=== PATIENT | male | born 1955 | race African-American/Black ===

== ENCOUNTER → 2017-11-22 | Outpatient (CLI) | payer OTHER ==
[~2017-11-22] MED LIST: PHENYTOIN 50 MG PO
--- NOTE | 2017-11-22 16:09 | Diagnostic Imaging Report ---
PROCEDURE:C-SPINE COMPLETE COMPARISON:None. INDICATIONS:SHARP RIGHT SIDE PAIN FINDINGS: 5 views of the cervical spine (AP, lateral, bilateral obliques, and odontoid view). The lateral view is visualized from the skull base to the top of C7. The vertebral bodies are well-aligned. There are no fractures, lytic or blastic lesions. There is mild multilevel disc space narrowing and anterior osteophyte formation. There is moderate to severe narrowing of the C1-C2 interval, likely degenerative. Bilateral neural foraminal narrowing at C3-C4. Probable right-sided neural foraminal narrowing at C4-C5. The pre-vertebral soft tissues are normal. CONCLUSION: Multilevel degenerative changes of the cervical spine as above. Dictated by: Clifford Mills M.D. on 11/22/2017 at 16:18 Electronically approved by: Clifford Mills M.D. on 11/22/2017 at 16:18
--- NOTE | 2017-11-22 16:17 | Diagnostic Imaging Report ---
PROCEDURE:X-RAY RIGHT ELBOW, COMPLETE COMPARISON:None. INDICATIONS:SHARP RADIATING PAIN FROM NECK TO HAND FINDINGS: 3 views of the right elbow (AP, lateral, and oblique) There are no fractures, dislocations, lytic or blastic lesions. There is a small triceps tendon enthesophyte. The bones are well-mineralized. The soft-tissues are unremarkable. CONCLUSION: No acute abnormality of the right elbow. Dictated by: Clifford Mills M.D. on 11/22/2017 at 16:26 Electronically approved by: Clifford Mills M.D. on 11/22/2017 at 16:26
--- NOTE | 2017-11-22 16:36 | Diagnostic Imaging Report ---
PROCEDURE:HAND RIGHT 3 VIEWS AP \T\ LAT COMPARISON:None. INDICATIONS:SHARP RIGHT SIDE NECK AND HAND PAIN FINDINGS: 3 views of the right hand (AP, lateral, and oblique) There are no fractures, dislocations, lytic or blastic lesions. Mild degenerative changes at the basilar joint of the thumb and at the DIP joints. The bones are well-mineralized. The soft-tissues are unremarkable. IMPRESSION: No acute radiographic abnormality of the right hand. Dictated by: Clifford Mills M.D. on 11/22/2017 at 16:46 Electronically approved by: Clifford Mills M.D. on 11/22/2017 at 16:46
--- NOTE | 2017-11-22 16:39 | Diagnostic Imaging Report ---
PROCEDURE:X-RAY RIGHT SHOULDER, COMPLETE COMPARISON:None. INDICATIONS:SHARP RADIATING PAIN FROM NECK TO HAND FINDINGS: 2 views of the right shoulder (AP internal and external rotation). Internal and external rotation are adequate. There are no fractures or dislocation. Well-corticated ossified bodies in the glenohumeral joint. Degenerative changes of the acromioclavicular joint. CONCLUSION: 1. No fracture or dislocation. 2. Well-corticated ossicles in the glenohumeral joint may represent loose bodies or calcific tendinopathy in the subcutaneous tendon. Dictated by: Clifford Mills M.D. on 11/22/2017 at 16:48 Electronically approved by: Clifford Mills M.D. on 11/22/2017 at 16:49
== END ==
LOC: RAD 14:50
DX: M54.2 Cervicalgia (principal); R20.2 Paresthesia of skin; M25.511 Pain in right shoulder; M25.521 Pain in right elbow; M79.641 Pain in right hand
CPT/HCPCS: 72050

== ENCOUNTER → 2019-04-27 | Outpatient (CLI) | payer OTHER ==
--- NOTE | 2019-04-27 16:11 | Diagnostic Imaging Report ---
EXAMINATION: CHEST 2 VIEWS INDICATION: Palpable chest lesion. COMPARISON: None FINDINGS: TUBES and LINES: None. LUNGS: The lung volumes are normal. No focal consolidation or pulmonary edema. 5 mm calcified granuloma in the right upper lung zone. PLEURA: No pleural effusion or pneumothorax. HEART AND MEDIASTINUM: The cardiomediastinal silhouette is normal in size and contour. BONES AND SOFT TISSUES: No acute fracture or dislocation. UPPER ABDOMEN: No free air under the diaphragm. IMPRESSION: No focal pneumonia or pulmonary edema. No radiographically apparent soft tissue or osseous abnormality corresponding with reported palpable lesion in the sternal region. If there is a palpable soft tissue nodule of concern, ultrasound evaluation is better suited for soft tissue evaluation. Signed by: Tremaine Lawrence MD on 04/27/2019 4:08 PM
== END ==
LOC: RAD 15:22
DX: R91.8 Other nonspecific abnormal finding of lung field (principal)
CPT/HCPCS: 71046